=== PATIENT | male | born 1955 | race Caucasian/White ===

== ENCOUNTER 2016-10-18 11:19 | Outpatient (CLI) | payer OTHER ==
--- NOTE | 2016-10-18 14:43 | DIAGNOSTIC IMAGING REPORT ---
PROCEDURE: CT SOFT TISSUE NECK WITH CONT INDICATION: CLL, follow-up. TECHNIQUE: 70 ml of Isovue 300 injected intravenously and axial images were obtained from the skull base through the upper mediastinum with sagittal and coronal reformations. In addition, angled axial oblique images were obtained ( avoiding dental hardware). COMPARISON: CT soft tissue neck 01/21. FINDINGS: There are bilateral small jugular lymph nodes which have increased in size since the prior study, largest on the right 6 mm. There are bilateral supraclavicular lymph nodes, largest 9 mm on the right. Submandibular and thyroid gland are normal. Right apical mass measures approximately 3 x 1.6 cm. Normal airway. Moderate bilateral maxillary sinus disease. Visualized mastoids are clear. Moderate degenerative changes of the spine most prominent at C5-6. IMPRESSION: 1. Small bilateral jugular supraclavicular lymph nodes which have increased in size since the prior study. This could represent tumor recurrence versus reactive lymph nodes. 2. Right apical mass All CT scans at this facility use dose modulation, iterative reconstruction, and/or weight-based dosing when appropriate to reduce radiation dose to as low as reasonably achievable.
--- NOTE | 2016-10-18 16:24 | DIAGNOSTIC IMAGING REPORT ---
PROCEDURE: CT THORAX ABD PELVIS W/CONT INDICATION: CLL, follow-up TECHNIQUE: 150 ml of Isovue 300 injected intravenously and axial images were obtained of the entire thorax, abdomen, and pelvis with sagittal and coronal reformations. COMPARISON: CT chest/abdomen/pelvis 01/18/[address] abdomen/pelvis 10/10/2012. FINDINGS: THORAX: New 3 x 1.6 right apical soft tissue. There are several new nodular and patchy opacities bilaterally, largest 2.2 cm in the right lower lobe. Stable 9 mm right upper lobe nodule (image 13). New bilateral axillary, pretracheal (16 mm of short axis), right paratracheal and subcarinal (16 mm short axis) adenopathy. No effusion. Mild atherosclerosis of the aorta and the coronaries. Normal heart size. No pericardial effusion. No suspicious osseous lesions. ABDOMEN: New 1.7 cm right hepatis lymph node. 1 cm hypoenhancing lesion with a peripheral enhancement in the dome of the liver posteriorly and another measuring 14 mm in the right hepatic lobe, unchanged, most consistent with hemangiomas. The gallbladder, pancreas, spleen, adrenal glands and right kidney are unremarkable. Small left renal cyst. Moderate atherosclerosis of the aorta. Mild to moderate degenerative changes of the spine. PELVIS: Normal appendix. Moderate stool. Dystrophic prostate calcifications. Normal bladder. No adenopathy, mass, inflammatory disease or free fluid. Large hydrocele. Small sclerotic lesions of the left femoral head and ischial tuberosity consistent with bone islands. IMPRESSION: 1. Recurrence of mild bilateral axillary and mediastinal adenopathy with new carlie hepatis adenopathy, consistent with a history of chronic lymphocytic leukemia 2. Right apical soft tissue mass and multiple nodular and patchy opacities bilaterally. This may represent inflammatory/infectious changes but neoplastic changes are also a consideration. 3. Hepatic hemangiomas. 4. Large hydrocele All CT scans at this facility use dose modulation, iterative reconstruction, and/or weight-based dosing when appropriate to reduce radiation dose to as low as reasonably achievable.
== END 2016-10-18 23:00 ==
LOC: CT SRH 11:19 → LAB SRH 11:19 → CT SRH 12:00
DX: C91.10 Chronic lymphocytic leukemia of B-cell type not having achieved remission (principal); R91.8 Other nonspecific abnormal finding of lung field
CPT/HCPCS: 90074; 90100; 92680; 95059; 97096

== ENCOUNTER 2016-11-24 09:08 | Outpatient (CLI) | payer OTHER ==
--- NOTE | 2016-11-24 12:04 | DIAGNOSTIC IMAGING REPORT ---
PROCEDURE: CT THORAX WITHOUT CONTRAST INDICATION: CLL, RT APICAL SOFT TISSUE DENSITY TECHNIQUE: Noncontrast axial images were obtained of the chest with coronal and sagittal reformations. Although the study was ordered with IV contrast, the patient refused contrast, stating he did not think it was necessary. COMPARISON: CT chest abdomen pelvis 10/18/2016 and outside chest radiograph 11/01/[address] chest 01/18/2011 FINDINGS: Interval decrease in density in size of right medial apical triangular-shaped soft tissue mass with a few small residual air bronchograms and minor hazy ground-glass opacity in this region. Strand-like patchy elements more caudally have also resolved. There is a small julia shaped persistent posterior scar in the right lung apex unchanged compared to remote prior study (2010). Resolution of posterior pleural-based nodule in the right medial upper lobe and a decreased size of superior segment right lower lobe posterior pleural-based nodule. There is slight residual adjacent peribronchial thickening. Mild parenchymal change to a much lesser extent is seen in the anteromedial right middle lobe. Three patches of slight tree in bud nodular pattern laterally in the right lower lobe have all decreased in density. Minimal residual lingular and lateral left upper lobe parenchymal change, also decreased in density. Mild mediastinal adenopathy to a stable degree. Mild bilateral axillary adenopathy. Moderate subcarinal adenopathy again seen. Lymph nodes are less well defined without aid of IV contrast.. Heart size, great vessels, anterior and posterior mediastinum, and pleural spaces are stable. No pericardial or pleural effusion. Unenhanced appearance of the upper abdomen is fairly stable. No suspicious osseous lesions. IMPRESSION: 1. Considerable interval decrease in size and density of multifocal bilateral parenchymal opacities, right much more extensive than left, with a small amount of residual disease. 2. Bilateral axillary and mediastinal adenopathy is fairly stable though less well defined without the aid of intravenous contrast.
== END 2016-11-24 23:00 ==
LOC: CT SRH 09:08
DX: C91.10 Chronic lymphocytic leukemia of B-cell type not having achieved remission (principal); R59.0 Localized enlarged lymph nodes